=== PATIENT | male | born 1970 | race Caucasian/White ===

== ENCOUNTER 2016-08-09 17:57 | Emergency (ER) | payer MEDICAID ==
[2016-08-09] MEDS ORDERED: L.E.T. 3 ML SOLUTION TOPICAL ONE (18:33)
[2016-08-09] MEDS ORDERED: LIDOCAINE/EPI 1% MDV 20 ML ONE (18:34)
== END 2016-08-09 20:13 | disposition home or self-care (01) ==
LOC: FASTR 17:57
DX: L02.31 Cutaneous abscess of buttock (principal); I10 Essential (primary) hypertension; E78.00 Pure hypercholesterolemia, unspecified; I25.2 Old myocardial infarction; Z86.73 Personal history of transient ischemic attack (TIA), and cerebral infarction without residual deficits; Z95.0 Presence of cardiac pacemaker; Z79.82 Long term (current) use of aspirin